=== PATIENT | female | born 1975 | race Caucasian/White ===

== ENCOUNTER 2021-04-26 05:53 | Day surgery (SDC) | payer MEDICAID ==
[2021-04-26] MEDS ORDERED: Dextrose 5%-Lactated Ringers 1,000 ML IV SCH (06:30)
[2021-04-26] MEDS ORDERED: Midazolam 1 MG/ML 2 ML SDV ONE (07:07)
[2021-04-26] MEDS ORDERED: Propofol 200 MG/20 ML SDV ONE (07:07)
[2021-04-26] MEDS ORDERED: fentaNYL 100 MCG/2 ML SDV ONE (07:07)
[2021-04-26] MEDS ORDERED: Glycopyrrolate 0.2 MG/ML 2 ML SDV IVPUSH ONE (07:15)
[2021-04-26] MEDS ORDERED: Pantoprazole 40 MG Vial IVPUSH ONE (07:32)
--- NOTE | 2021-04-26 13:39 | OR ---
DATE OF PROCEDURE: 04/26/2021 SURGEON: Adan Maharaj MD PREOPERATIVE DIAGNOSIS: Weight regain, status post Fela-en-Y gastric bypass. POSTOPERATIVE DIAGNOSES: 1. Weight regain state, status post previous Fela-en-Y gastric bypass with: a. Very large gastric pouch. b. Small gastrogastric fistula. 2. Marginal ulcer in adjacent jejunum secondary to large pouch. OPERATIVE PROCEDURE: Upper gastrointestinal endoscopy with biopsies of gastric pouch for CLOtest. ANESTHESIA: IV sedation. INDICATION FOR PROCEDURE: The patient is status post previous Fela-en-Y gastric bypass, done in [place]. She presents now with some weight regain as well as some epigastric discomfort. The plan is to proceed with upper GI endoscopy with biopsies as indicated. Potential risks including bleeding and perforation were discussed and the patient wishes to proceed. DETAILS OF PROCEDURE: The patient was taken to the operating room and placed in a left lateral decubitus position. IV sedation was administered, after which the upper GI endoscope was passed orally through the length of the esophagus into the gastric pouch, and from there through the gastrojejunostomy roughly 20 cm into the Fela limb. Findings included normal esophagus and EG junction area. The gastric pouch itself was very large, measured around 8 cm from the esophagogastric junction to the gastrojejunostomy. This was associated with a small fistula into the bypassed stomach with some bile coming up into that area. Adjacent to the gastrojejunostomy on the jejunal side, there was a broad- based marginal ulcer present as well, beyond that the Fela limb was normal. At this point, biopsies were obtained from the gastric pouch and sent for CLOtest for H. pylori. Minimal bleeding from the biopsy site was seen and the procedure then concluded. The patient was taken to the recovery room in satisfactory condition. The patient will be started on Protonix for treatment of marginal ulcer, and we will await establishment of her new upcoming insurance and get a letter of requesting revision of this gastric bypass. Adan Maharaj MD /[id number]
== END 2021-04-26 09:00 | disposition home or self-care (01) ==
LOC: JP.SDS 05:53
PROVIDERS: ATTEND Surgery
DX: K31.6 Fistula of stomach and duodenum (principal); K28.9 Gastrojejunal ulcer, unspecified as acute or chronic, without hemorrhage or perforation; R63.5 Abnormal weight gain; Z98.84 Bariatric surgery status
CPT/HCPCS: 43239; 87081; C9113; J2250; J2704; J3010; J3490; J7121